=== PATIENT | female | born 1945 | race Two or more races ===

== ENCOUNTER → 2025-09-29 | Day surgery (SDC) | payer OTHER, MEDICAID ==
[2025-09-27 10:45] LABS: Hemoglobin 13.8 g/dL (12.2-16.2)
[2025-09-27 10:48] LABS: Hematocrit 40.9 % (36.0-46.0); Mean Corpuscular Hemoglobin 27.3 pg (28.0-32.0); Mean Corpuscular Volume 81.0 fL (80.0-100.0); Nucleated Red Blood Cells % 0.0 %
[2025-09-27 10:59] LABS: INR 0.96 (0.9-1.15); Partial Thromboplastin Time 36.6 SEC (24.5-34.5); Prothrombin Time 10.2 sec (9.3-11.8)
[2025-09-27 11:35] LABS: Alanine Aminotransferase 17 U/L (7-40); Alkaline Phosphatase 83 U/L (46-116); Anion Gap 7 (5-15); BUN/Creatinine Ratio 15.2 (10.0-20.0); Blood Urea Nitrogen 14 mg/dL (9-23); Carbon Dioxide 29 mmol/L (20-31); Chloride 104 mmol/L (98-107); Glucose 99 mg/dL (74-106); Potassium 4.6 mmol/L (3.5-5.1); Sodium 140 mmol/L (136-145); Total Protein 8.1 g/dL (5.7-8.2)
[2025-09-27 11:36] LABS: Albumin 4.6 g/dL (3.2-4.8); Bilirubin, Total 0.4 mg/dL (0.2-1.0)
[2025-09-27 11:38] LABS: Calcium 10.4 mg/dL (8.7-10.4)
[~2025-09-29] VITALS: Ht 165.1 cm; Wt 69.4 kg
[~2025-09-29] MED LIST: ALBUAER3 IN; ATOR10TA PO; LEVO25TA6 PO; LIDOCAINE VISCOUS 2% 15ML UD ONE; MAGN400T40 OR; METO25TA93 PO; OMEP-434 PO; OXYC15TA77 PO; PROPOFOL 10 MG/ML 20 ML IV ONE; RIME75TA PO; RIVSET PO; fentaNYL CITRATE 100 MCG/2 ML VL ONE; hydrALAZINE HCL 20 MG/ML VL ONE
[2025-09-29 08:38] VITALS: PULSE 73; RESP 12; TEMP 97.8; O2SAT 96
--- NOTE | 2025-09-29 08:38 | DVHHP2 ---
GI H&P Pre-Op Assessment Date: 09/29/25 Chief complaint: Epigastric pain HPI: per clinic note Past medical history: per clinic note Past surgical history: per clinic note Family history: per clinic note Physical exam: General: NAD, AAOX3 HEENT: PERRL, no scleral icterus, normal hearing, gums without lesions or bleeding, oropharynx clear without erythema or exudate. Neck: Supple without enlargement of the thyroid, or lymphadenopathy. Chest: Normal size and shape, no tenderness, lung cavazos clear to auscultation and percussion, nonlabored breathing. Heart: RRR, no murmur Abdomen: non-distended, no tenderness to palpation, +BS, no hepatosplenomegaly Extremities: no edema Neurological: CN II-XII intact, sensation intact in all extremities, 5+ strength in all extremities Skin: No rashes, No jaundice Assessment: - epigastric pain Plan: - EGD - Risks (bleeding, infection, perforation, reaction to sedation medications and cardiopulmonary arrest) and benefit of the procedure were explained to patient. Patient agrees to undergo the procedure. JESSICA MORRISON MD Sep 29, 2025 08:38
--- NOTE | 2025-09-29 08:40 | DVHOP2 ---
Operative Report DATE OF OPERATION: 09/29/25 PROCEDURE: Upper Endoscopy. PREOPERATIVE INDICATION: The patient is a 80 -year-old female undergoing endoscopy for epigastric pain. POSTOPERATIVE DIAGNOSES: 1. Mild duodenitis in the duodenal bulb. PROCEDURE PERFORMED BY: Jaycob Gunn SCOPE: Olympus videoendoscope. ASA CLASS: 3 PREOPERATIVE MEDICATIONS: MAC with Dr Garcia PROCEDURE IN DETAIL: After obtaining an informed consent, the patient was placed on her back The patient was then sedated with the above medications. A bite block was placed between her teeth. The endoscope was then passed through the oropharynx, into the esophagus, and through the stomach and pylorus up to the second and third part of the duodenum. There was mild duodenitis in the duodenal bulb. Duodenal biopsies were obtained using cold forceps. The stomach was normal in appearance. Gastric biopsies were obtained using cold forceps. The GE junction was normal in appearance at 35 cm. The esophagus was normal in appearance. The endoscope was then withdrawn. The patient tolerated the procedure well without difficulty. COMPLICATIONS : None SPECIMENS: Duodenal biopsies, Gastric biopsies DISPOSITION: D/C to home PLAN: 1. Await for biopsy result 2. Continue with omeprazole. JAYCOB GUNN MD Sep 29, 2025 08:40
--- NOTE | 2025-09-29 08:40 | DVHDS2 ---
Physician Discharge Progress N Final Diagnosis: Mild duodenitis Operations or Procedures: Operations or Procedures EGD with cold biopsies Condition on Discharge: Good Disposition: Home Discharge Instructions: Diet: Regular Activity: No Restrictions, As Tolerated Medications: Resume with previous home medications Follow Up Care: Discharge Statement: "Patient was advised to return to the ER or call 911 if any headaches, dizziness, shortness of breath, chest pain, abdominal pain, bleeding, fevers, or worsening of medical condition. Patient was counseled about treatment plan, medications, possible side effects, patientverbalized understanding. All questions were answered to the best of my ability. This discharge took greater then 30 minutes in planning, reviewing document ation, counseling the patient, and discussing with other team members." JESSICA MORRISON MD Sep 29, 2025 08:40
[2025-09-29 08:55] VITALS: BP 137/64; PULSE 69; RESP 12; O2SAT 98
== END | disposition home or self-care (01) ==
LOC: GI 07:25
PROVIDERS: ATTEND Internal Medicine Gastroenterology
DX: R10.13 Epigastric pain (principal); K29.50 Unspecified chronic gastritis without bleeding; K29.80 Duodenitis without bleeding; K21.9 Gastro-esophageal reflux disease without esophagitis; I12.9 Hypertensive chronic kidney disease with stage 1 through stage 4 chronic kidney disease, or unspecified chronic kidney disease; N18.2 Chronic kidney disease, stage 2 (mild); J45.909 Unspecified asthma, uncomplicated; E78.5 Hyperlipidemia, unspecified; M19.90 Unspecified osteoarthritis, unspecified site; Z79.899 Other long term (current) drug therapy; Z86.73 Personal history of transient ischemic attack (TIA), and cerebral infarction without residual deficits; Z86.2 Personal history of diseases of the blood and blood-forming organs and certain disorders involving the immune mechanism; Z90.710 Acquired absence of both cervix and uterus; Z98.890 Other specified postprocedural states
CPT/HCPCS: 36415; 43239; 80053; 85025; 85610; 85730; 88305; 88313; 88342; J0360; J2704; J3010; J7030